=== PATIENT | female | born 1995 | race Caucasian/White ===

== ENCOUNTER 2023-02-09 19:36 | Emergency (ER) | payer MEDICAID ==
[~2023-02-09] VITALS: Ht 167.6 cm; Wt 72.6 kg
--- NOTE | 2023-02-09 20:25 | NUR ---
URINE COLLECTED AND SENT TO LAB
--- NOTE | 2023-02-09 20:25 | NUR ---
PT BIBSELF C/O HEADACHE AT THE BACK OF HER HEAD AND NAUSEA X YESTERDAY MORNING. PT HAS BEEN TAKING TYLENOL, LAST DOSE WAS 1800 THIS EVENING, WITHOUT RELIEF. PT ATTACHED TO MONITOR AND POX.
[2023-02-09] MEDS ORDERED: diphenhydrAMINE HCL 25 MG CAPSULE ONE (20:43)
[2023-02-09] MEDS ORDERED: METOCLOPRAMIDE HCL 10 MG TABLET ONE (20:44)
[2023-02-09] MEDS ORDERED: IBUPROFEN 600 MG TABLET ONE (20:44)
[2023-02-09] MEDS: IBUPROFEN 600 MG TABLET PO ONE (20:46)
[2023-02-09] MEDS: METOCLOPRAMIDE HCL 10 MG TABLET PO ONE (20:46)
[2023-02-09] MEDS: diphenhydrAMINE HCL 25 MG CAPSULE PO ONE (20:46)
[2023-02-09] MEDS ORDERED: METO-295 PO (21:50)
[2023-02-09 21:52] VITALS: BP 128/99
--- NOTE | 2023-02-09 21:52 | NUR ---
Patient discharged to home in stable condition. Written and verbal after care instructions given. Patient verbalizes understanding of instruction.
== END 2023-02-09 21:53 | disposition home or self-care (01) ==
LOC: ER 19:40
DX: G43.909 Migraine, unspecified, not intractable, without status migrainosus (principal)
CPT/HCPCS: 99284; Q0163; J8597